=== PATIENT | male | born 1955 | race Caucasian/White ===

== ENCOUNTER → 2018-05-06 11:36 | Outpatient (CLI) | payer MEDICARE, SELFPAY ==
--- NOTE | 2018-05-06 | DI.RAD.S_ITS ---
PROCEDURE: XR KNEE LT 3V INDICATIONS: LEFT KNEE PAIN TECHNIQUE: 3 views of the knee were acquired. COMPARISON: None. FINDINGS: Bones: No fractures or dislocations. No suspicious bony lesions. Minimal medial joint space narrowing. Spurring of the superior pole of the patella. Soft tissues: No joint effusion. No suspicious soft tissue calcifications. IMPRESSION: Degenerative spurring. Minimal medial compartment joint degeneration. Dictated by: Chito Mane M.D. on 05/06/2018 at 12:50 Approved by: Chito Mnae M.D. on 05/06/2018 at 12:51
== END ==
PROVIDERS: Family Provider Family Medicine; PCP Family Medicine; Visit Provider Family Medicine
DX: M25.562 Pain in left knee (principal); M22.8X2 Other disorders of patella, left knee
CPT/HCPCS: 73562

== ENCOUNTER → 2024-08-10 15:07 | Outpatient (CLI) | payer MEDICARE, MEDICAID, SELFPAY ==
--- NOTE | 2024-08-10 15:10 | DI.RAD.S_ITS ---
PROCEDURE: XR CHEST 2V INDICATIONS: Chest pain on breathing TECHNIQUE: 2 views of the chest were acquired. COMPARISON: None. FINDINGS: Surgical changes and devices: None. Lungs and pleura: Lungs are clear. No pleural effusions or pneumothorax. Mediastinum: Mediastinal contours are normal. Heart size is normal. Bones and chest wall: No suspicious bony abnormalities. Soft tissues appear unremarkable. IMPRESSION: No acute cardiopulmonary abnormality is seen. Dictated by: Asad Lou M.D. on 08/11/2024 at 0:10 Approved by: Asad Lou M.D. on 08/11/2024 at 0:10
== END ==
PROVIDERS: PCP Family Medicine; Referring Provider Family Medicine; Visit Provider Family Medicine
DX: R07.1 Chest pain on breathing (principal)
CPT/HCPCS: 71046